=== PATIENT | female | born 1995 | race Caucasian/White ===

== ENCOUNTER 2016-08-07 22:02 | Emergency (ER) | payer OTHER | END 2016-08-08 02:50 | disposition left against medical advice (07) | LOC: ER1 22:02 | DX: Z53.21 Procedure and treatment not carried out due to patient leaving prior to being seen by health care provider (principal) | CPT/HCPCS: 87081; 87880 ==

== ENCOUNTER → 2020-11-29 | Outpatient (CLI) | payer OTHER ==
[~2020-11-29] MED LIST: COLACE 100MG C100 MG PO
== END ==
LOC: CT 12:36
DX: R05 Cough (principal); M54.2 Cervicalgia; M54.9 Dorsalgia, unspecified
CPT/HCPCS: 71046; 72050; 72070; 72110